=== PATIENT | male | born 1970 | race African-American/Black ===

== ENCOUNTER 2018-10-01 18:27 | Emergency (ER) | payer SELFPAY ==
[2018-10-01] MEDS ORDERED: Ketorolac Tromethamine 30 MG/ML VIAL ONE (18:56)
[2018-10-01] MEDS ORDERED: traMADol HCl 50 MG TAB ONE (18:57)
== END 2018-10-01 19:15 | disposition home or self-care (01) ==
LOC: ERS 18:27
DX: M10.9 Gout, unspecified (principal); I12.9 Hypertensive chronic kidney disease with stage 1 through stage 4 chronic kidney disease, or unspecified chronic kidney disease; N18.3 Chronic kidney disease, stage 3 (moderate); E78.5 Hyperlipidemia, unspecified; F17.220 Nicotine dependence, chewing tobacco, uncomplicated; Z79.82 Long term (current) use of aspirin; Z79.899 Other long term (current) drug therapy
CPT/HCPCS: 96372; 99283; J1885